=== PATIENT | female | born 1990 ===

== ENCOUNTER 2019-05-23 09:19 | Inpatient (IN) | payer MEDICAID, OTHER ==
--- NOTE | 2019-05-23 10:39 | HP ---
General Information - Reason for Visit IUP at 40-6/7 weeks in labor - General Information Maternal Age: 28 Grav: 1 Para: 0 SAB: 0 IEA: 0 Estimated Due Date: 05/17/19 Determined By: LMP Gestational Age in Weeks/Days: 40-6/7 Maternal Blood Type and Rh: A Positive - Results this Serology/RPR Result: Non-Reactive Rubella Result: Immune HBsAg Result: Negative HIV Result: Negative GBS Culture Result: Negative Past Medical History Delivery History: See Records Delivery History Comment: Primip Pertinent Past Medical History: See Records Past Medical History Comment: High risk social circumstances. Established care in [place]. Relocated to [place] with [facility] and then moved to [place] following a break up with [facility]. Here with a sponsor family but no extended personal friends or family in this area. Pertinent Past Surgical History: None Pertinent Family History: See Records Family History Comment: Brother recently murdered back in [place]. Pt exposed to gruesome pictures of his murder on the news since moving to [place]. Remaining family healthy - Antepartal Records Antepartal Records: Reviewed, Complicated by: - Proteinuria, High risk social circumstances, Per personal choice declines blood products but consents to IV in labor Review of Systems Constitutional: Uncomfortable - with UCs CV Complaint: No Respiratory: Shortness of Breath: No Gastrointestinal: No Nausea/Vomiting, Normal Bowel Movement Genitourinary: No Dysuria, No Bleeding, No Leaking Fluid Musculoskeletal: Contractions Neurological: No Headache, No Visual Changes Movement: Normal Exam BP 133/79 HR 65 RR 17 T 98 Lab Values - Entire Visit: Laboratory Tests 05/23/19 09:44 Vag Amniotic Fld Detect Negative - Measurements Height: 4 ft 10 in Weight: 138 lb Weight in lbs: 138.818390 Body Mass Index (BMI): 28.8 Pre- Weight: 108 lb - Exam Breast: Breast Exam Deferred CVA: No CVA Tenderness Extremities: No Edema Heart: Normal Rhythm/Heart Sounds HEENT: No Significant Findings Lungs: Clear Bilaterally Rectal: Rectal Exam Deferred Reflexes: DTR 2+ Thyroid: No Thyromegaly - Abdominal Exam Abdomen Exam: Non-Tender, Fundal Height Consistent with Dates - Ultrasound/Biophysical Profile Ultrasound Status: Not Done Targeted Exam Findings See L&D Outpatient Visit Provider Note for Findings: N/A Cervical Exam: 6cm Effacement: 90% Station: -1 - per RN exam on arrival Presenting Part: Vertex Membrane Status: Bulging Amniotic Fluid Evaluation: ROM Plus Pending Sterile Speculum Exam: Not done Bleeding/Discharge: None EFM Findings - External Monitor Findings Baseline Heart Rate: 140 External Monitor Findings: Accelerations Present, No Pattern of Variable or Late Decelerations, Variability Moderate, Baseline Stable External Monitor Findings Comment: No evidence of metabolic acidemia Contractions: Regular Contraction Frequency: q 5 min Assessment/Plan - Assessment IUP at 40-6/7 in labor No evidence of metabolic acidemia Proteinuria without hypertension Declines blood products - Obstetrical Risk Factors Obstetrical Risk Factors: Proteinuria, Psychosocial Issues - Plan Plan: Admit - Anticipate Vaginal Delivery Plan Comment: Admit. Given history of proteinuria plan labs: CBC, P33, uric acid, u/a. Counseled with aid of [place] carpet inspector re: need for IV placement in labor given refusal of all blood products. Aware of bleeding risks associated with delivery and <1% chance that pt would need blood products pt verbalizes understanding and still declines. Dr. Whyte aware of pt presence and condition. Anticipate - Date/Time of Admission Date of Admission: 05/23/19 Time of Admission: 10:01
[2019-05-23 11:07] LABS: ABS Basophils 0.1 10^3/ul (0-0.2); ABS Lymphocytes 2.4 10^3/ul (1.0-4.8); ABS Monocytes 1.2 10^3/ul (0-0.8); ABS Neutrophils 8.6 10^3/ul (1.5-7.7); Eosinophil % 0.2 %; Hematocrit 40 % (35-47); Hemoglobin 13.2 g/dL (12.0-16.0); Lymphocyte % 19.6 %; Mean Corpuscular HGB Conc 33 g/dL (31-36); Mean Corpuscular Hemoglobin 29 pg (27-31); Mean Corpuscular Volume 86 fL (80-97); Mean Platelet Volume 10.9 fL (7.4-10.4); Nucleated Red Blood Cells % 0.1; Platelet Count 156 10^3/uL (150-450); Red Blood Count 4.63 10^6 /uL (3.70-4.87); Red Cell Distribution Width 15 % (10-15); White Blood Count 12.3 10^3/uL (3.5-10.8)
[2019-05-23 11:10] LABS: Urine Appearance Cloudy; Urine Bacteria Absent (Absent); Urine Bilirubin Negative (Negative); Urine Blood 1+ (Negative); Urine Color Yellow; Urine Glucose Negative (Negative); Urine Ketones Negative (Negative); Urine Nitrite Negative (Negative); Urine Protein 3+(>=500 mg/dL) (Negative); Urine Red Blood Cell Trace(0-2/hpf) (Absent); Urine Specific Gravity 1.011 (1.010-1.030); Urine Squamous Epithelial Cell Present (Absent); Urine Urobilinogen Negative (Negative); Urine White Blood Cell 2+(11-20/hpf) (Absent)
[2019-05-23 11:22] LABS: Albumin 3.1 g/dL (3.2-5.2); Albumin/Globulin Ratio 1.1 (1-3); BUN/Creatinine Ratio 22.2 (8-20); Calcium 8.5 mg/dL (8.6-10.3); EGFR African American 160.4 (>60); EGFR Non-African American 132.6 (>60); Globulin 2.8 g/dL (2-4); Potassium 3.9 mmol/L (3.5-5.0); Total Bilirubin 0.3 mg/dL (0.2-1.0); Total Protein 5.9 g/dL (6.4-8.9); Uric Acid 6.8 mg/dL (2.3-6.6)
[2019-05-23 11:28] LABS: Urine Benzodiazepine Screen None Detected (None Detect); Urine Opiates Screen None Detected (None Detect)
--- NOTE | 2019-05-23 11:53 | PN ---
Progress Note - Progress Note Date of Service: 05/23/19 Note: S: Pt reports UCs stronger and feeling some intermittent rectal pressure like she needs to have a BM. O: VSS, afebrile FHT 125bpm by intermittent doptones. No decels UCs q 5 min, moderate to palpation VE by CNM 4cm/80%/vtx -2, BBOW BP labs WNL. Proteinuria still seen A: IUP at 40-6/7 in early active labor No evidence of metabolic acidemia Proteinura without hypertension P: Support given. Pt moving around room, changing positions frequently. Reinforced. Also encouraged PO hydration. Will continue to monitor closely
--- NOTE | 2019-05-23 14:13 | PN ---
Progress Note - Progress Note Date of Service: 05/23/19 Note: S: Pt was able to take a nap and is now in the tub with good relief from discomfort of UCs O: VSS, afebrile FHT 135bpm. Moderate variability. + Accels. No decels UCs q 5 min VE deferred A: IUP at 40-6/7 in early active labor No evidence of metabolic acidemia P: Continue expectant management and psychoprophylaxis per pt preference at this time
--- NOTE | 2019-05-23 18:08 | PN ---
Progress Note - Progress Note Date of Service: 05/23/19 Note: S: Pt requesting VE. Reports UCs have spaced out to q 10 min O: VSS, afebrile FHT 130bpm. Moderate variability. No decels by intermittent doptones UCs q 6-10 min, moderate - firm VE: 4-5cm/80%/vtx -1, BBOW A: IUP at 40-6/7 in early active labor No evidence of metabolic acidemia P: Discussed ongoing expectant management and reassurance given. Reviewed labor augmentation and discussed AROM vs. IV pitocin. Pt prefers to avoid for now. Will continue to monitor.
--- NOTE | 2019-05-23 21:26 | PN ---
Progress Note - Progress Note Date of Service: 05/23/19 Note: S: Pt reports UCs closer together but shorter duration. Feeling more pressure in lower abdomen and low back O: VSS, afebrile FHT 135bpm. Moderate variability. +Accels. No decels UCs q 5-8 min VE unchanged A: IUP at 40-6/7 weeks in early active labor No evidence of metabolic acidemia P: Discussed management of early labor, expectant management vs. therapeutic rest vs. augmentation. At this time pt prefers ongoing expectant management. Will continue to monitor. Enc rest if able as well as PO hydration
--- NOTE | 2019-05-23 23:08 | PN ---
Progress Note - Progress Note Date of Service: 05/23/19 Note: S: Pt breathing through UCs but resting in between. Comfortable with ongoing expectant management O: VSS, afebrile FHT 135bpm. Moderate variability. +Accels. No decels UCs q 7-9 min VE deferred A: IUP at 40-6/7 in latent labor No evidence of metabolic acidemia P: Will continue to monitor. Enc rest if able.
--- NOTE | 2019-05-24 02:32 | PN ---
Progress Note - Progress Note Date of Service: 05/24/19 Note: S: Paged by RN to bedside for evaluation of possible SROM at 0200. Pt was ambulating in room, experienced a contraction and had a modest amount of yellow tinged fluid come out. RN suspects meconium. Pt c/o mid to low back ache that persists even after UC resolves. O: BP 133/68 HR 53 T 98.1 RR 18 FHT 140bpm. Moderate variability. +Accels. No decels UCs q 4-6 min VE 6cm/100%/vtx -1, BBOW palpated and no fluid present on glove, negative valsalva A: IUP at 41 weeks in early active labor No evidence of metabolic acidemia ?SROM P: Will continue to monitor. Pt to wear a pad. Reassurance given to pt re: aches and pains associated with labor
[2019-05-24] MEDS ORDERED: fentaNYL* 50 MCG/ML 2 ML VIAL (100 MCG VIAL) IV SLOW PU ONE ×2 (05:10→06:21)
--- NOTE | 2019-05-24 05:14 | PN ---
Progress Note - Progress Note Date of Service: 05/24/19 Note: S: Paged by RN to bedside to evaluate pt and discuss pain pt is experiencing. Pt requesting a short nap, something to help her "just for a little while". Movement is important to her. While at bedside pt reports SROM. On evaluation mec stained fluid noted coming from vagina O: VSS, afebrile FHT 140bpm. No decels per intermittent doptones. FHT being placed secondary to SROM UCs q 2-3 min VE: 6cm/100%/vtx 0 station, Membranes no longer felt A: IUP at 41 weeks in labor No evidence of metabolic acidemia Meconium stained fluid P: Bedside support and reassurance given. Pt counseled for IV pain relief. Pt desires. Will start with 25mcg IV Fentanyl
[2019-05-24] MEDS ORDERED: OBEPIDURAL* 0 ML EPIDURAL ONE (07:19)
[2019-05-24] MEDS ORDERED: Lidocaine 1.5% EPI 1:200,000* 30 ML SDV ONE (07:29)
[2019-05-24] MEDS ORDERED: OBEPIDURAL* 250 ML EPIDURAL ONE (07:30)
--- NOTE | 2019-05-24 07:50 | PN ---
Progress Note - Progress Note Date of Service: 05/24/19 Note: S: Pt received modest relief from IV Fentanyl. Feeling exhausted. Would like to discuss epidural placement O: VSS, afebrile FHT 140bpm. No decels by intermittent doptones UCs q 2-4 min VE deferred A: IUP at 41 weeks in labor No evidence of metabolic acidemia P: Anesthesia paged for consult. Report to Rianna Hernandez CNM who will be assuming care at 0800
[2019-05-24] MEDS ORDERED: Lactated Ringers 1000 ML Bag* 1,000 ML IV ONE (08:42)
[2019-05-24] MEDS ORDERED: Phenylephrine 40 MCG/ML SYRINGE IV PUSH PRN ×2 (08:42)
[2019-05-24] MEDS ORDERED: Sodium Citrate/Citric Acid* 15 ML UDC PO PRN (08:42)
--- NOTE | 2019-05-24 08:58 | PN ---
Progress Note - Progress Note Date of Service: 05/24/19 SOAP: Subjective: Pt comfortable s/p epidural placement. Very tired, falling asleep. Objective: FHR: Baseline 140, moderate variability, + accels, no decels UCs: Q 2-3 minutes, 60-80 seconds BP: 138/80 Temp: 98.6 Meconium stained fluid Assessment: Pt in active labor, comfortable with epidural. FHR Category I, no evidence of acidemia or chorioamnionitis. BPs mildly elevated. Pt with preexisting proteinuria, preeclampsia vs elevated BPs due to pain. Plan: Pt very fatigued, prefers to defer cervical exam at this time. Will recheck with pt report of pressure or increased discomfort, or in a couple hours. Anticipate .
[2019-05-24] MEDS ORDERED: Lactated Ringers 1000 ML Bag* 1,000 ML IV SCH ×2 (09:00→14:00)
[2019-05-24] MEDS ORDERED: OBEPIDURAL* 250 ML EPIDURAL SCH (09:00)
--- NOTE | 2019-05-24 10:32 | PN ---
Progress Note - Progress Note Date of Service: 05/24/19 SOAP: Subjective: Pt increasingly uncomfortable. Reports pressure, very uncomfortable with the urinary catheter, requests it be removed. Also having difficulty tolerating EFM straps. Pain more significant on left than right. Objective: Cervix: 6-7 cm/ 90%/ 0 station/ vtx Ctx: about every 2-3 minutes, monitor adjusted FHR: Baseline 135/ moderate variability/ + accels/ intermittent variable and early decels Assessment: Pt without significant cervical change for many hours. Not comfortable with epidural. FHR with some intermittent variable decels, resolved with position changes. Pt with difficulty coping. Plan: Dr. Salmeron called to bolus/ reposition pt epidural. Salvador catheter removed per pt request. Pt attempting to have BM on bedpan. Once pt more comfortable will consider IUPC placement. Dr. Ryder updated to pt status.
[2019-05-24 11:12] LABS: ABS Lymphocytes 1.4 10^3/ul (1.0-4.8); ABS Monocytes 1.1 10^3/ul (0-0.8); ABS Neutrophils 12.8 10^3/ul (1.5-7.7); Hematocrit 41 % (35-47); Hemoglobin 13.4 g/dL (12.0-16.0); Lymphocyte % 9.4 %; Mean Corpuscular HGB Conc 33 g/dL (31-36); Mean Corpuscular Hemoglobin 28 pg (27-31); Mean Corpuscular Volume 85 fL (80-97); Mean Platelet Volume 10.6 fL (7.4-10.4); Platelet Count 148 10^3/uL (150-450); Red Blood Count 4.74 10^6 /uL (3.70-4.87); Red Cell Distribution Width 15 % (10-15); White Blood Count 15.3 10^3/uL (3.5-10.8)
--- NOTE | 2019-05-24 11:26 | PN ---
Progress Note - Progress Note Date of Service: 05/24/19 Note: S: Pt remains very uncomfortable despite attempts by Dr. Salmeron to bolus the epidural. O: FHR Baseline 135, moderate variability, + accels, no decels Cervical exam unchanged UCs Q 2-3 minutes, strong to palpation BP 135/94 Meconium stained fluid A: Inadequate pain relief with epidural. Apparent arrest of dilation. FHR Category I. P: Discussed options with pt, including for arrest of dilation. Alternate option would be to continue to labor, consider IUPC/ Pitocin augmentation if ctx inadequate. Pt would like to discuss with her support people. CBC drawn to recheck platelet levels. Dr. Ryder aware of pt status.
[2019-05-24] MEDS ORDERED: ceFOXitin 2 GM IVPREMIX* 2 GM/50 ML BAG ONE (12:06)
[2019-05-24] MEDS ORDERED: ceFOXitin 2 GM IVPREMIX* 2 GM/50 ML BAG IVPB ONE (12:06)
[2019-05-24] MEDS ORDERED: Sodium Citrate/Citric Acid* 15 ML UDC ONE (12:06)
--- NOTE | 2019-05-24 12:06 | PN ---
Progress Note - Progress Note Date of Service: 05/24/19 Note: Pt presented in labor last night at 41 weeks. She has labored effectively with regular, strong ctx, but she has had no cervical change from 6cm for at least 7-8 hours now. Discussed , and pt agrees to proceed. Pt is Danish speaking but understands Vietnamese quite well. Declines an asthma educator. We discussed delivery at length. We reviewed the risks including hemorrhage, transfusion, infection, organ injury , anesthesia complications, and even . All questions were discussed and consent signed.
[2019-05-24] MEDS ORDERED: DiMENhydriNATE IV* 50 MG/ML VIAL ONE (12:10)
[2019-05-24] MEDS ORDERED: Ketorolac INJ* 30 MG/ML 1 ML VIAL ONE (12:10)
[2019-05-24] MEDS ORDERED: Lidocaine 2% PF* 10 ML AMP ONE (12:10)
[2019-05-24] MEDS ORDERED: Ondansetron INJ* 2 MG/ML VIAL ONE (12:10)
[2019-05-24] MEDS ORDERED: OXYTOCIN* 10 UNITS/ML 1 ML VIAL ONE (12:10)
[2019-05-24] MEDS ORDERED: Acetaminophen IV 1GM/100ML * 1,000 MG/100 ML VIAL IVPB ONE (12:13)
[2019-05-24] MEDS ORDERED: DiMENhydriNATE IV* 50 MG/ML VIAL IV PUSH PRN (12:13)
[2019-05-24] MEDS ORDERED: HYDROmorphone INJ1* 1 MG/ML SYRINGE IV PRN (12:13)
[2019-05-24] MEDS ORDERED: Naloxone* 0.4 MG/ML 1 ML VIAL IV PRN ×2 (12:13→13:42)
[2019-05-24] MEDS ORDERED: Morphine PF AMP (0.5MG/ML)* 5 MG/10 ML AMP ONE (12:15)
[2019-05-24] MEDS ORDERED: Propofol* 10 MG/ML 20 ML BTL ONE (13:32)
[2019-05-24] MEDS ORDERED: Ondansetron INJ* 2 MG/ML VIAL IV PRN (13:42)
[2019-05-24] MEDS ORDERED: Nalbuphine* 10 MG/ML 1 ML VIAL IV PRN (13:42)
[2019-05-24] MEDS ORDERED: oxyCODONE/Acetamin 5/325 MG* TAB PO PRN (13:42)
[2019-05-24] MEDS ORDERED: Witch Hazel PAD* JAR TOPICAL PRN (13:58)
[2019-05-24] MEDS ORDERED: Acetaminophen TAB* 325 MG PO PRN (13:58)
[2019-05-24] MEDS ORDERED: Ketorolac INJ* 30 MG/ML 1 ML VIAL IV SCH (14:00)
[2019-05-24] MEDS: Simethicone TAB* 80 MG TAB.CHEW PO SCH ×2 (18:32→22:21)
[2019-05-24] MEDS: Docusate CAP* 100 MG PO SCH ×2 (19:09→23:10)
--- NOTE | 2019-05-24 19:59 | OP ---
DATE OF OPERATION: 05/24/19 - ROOM #102 DATE OF : 86 SURGEON: Dutch Ryder MD. FOREST WORKER: Rianna Hernandez CNM. ANESTHESIOLOGIST: Dr. Salmeron. ANESTHESIA: Spinal. PRE-OP DIAGNOSIS: 41 weeks gestation with arrest of dilation. POST-OP DIAGNOSIS: 41 weeks gestation with arrest of dilation. OPERATIVE PROCEDURE: Primary low transverse section. ESTIMATED BLOOD LOSS: 600 cc. URINE OUTPUT: 400 cc. IV FLUIDS: 1500 cc lactated Ringer's. MATERIALS TO LAB: Cord blood. INDICATIONS: This patient is a 28-year-old 1, para 0, who presented in labor overnight. The patient had steady progress to about 6 cm dilation, but then did not have any further dilation for the last several hours despite frequent painful contractions. The patient received an epidural during labor; however, this stopped giving adequate pain relief. Considering the arrest of dilation, the patient was counseled for a section. She agreed and consent was signed. FINDINGS: Normal-appearing uterus, fallopian tubes, and ovaries. Delivery was productive of a male infant weighing 6 pounds 4 ounces with Apgars of 9 and 9. Time of delivery was 1304. COMPLICATIONS: None. DESCRIPTION OF PROCEDURE: The risks, benefits, and alternatives were described to the patient and informed consent was obtained. The patient was taken to the operating room with IV running where spinal anesthesia was induced and found to be adequate. The patient was prepped and draped in the normal sterile fashion in the dorsal supine position with leftward tilt. A Pfannenstiel skin incision was made with a scalpel and this was carried down to the underlying fascia sharply. The fascia was then scored in the midline with the scalpel. The incision was extended using Goff scissors. The rectus muscles were dissected off the rectus fascia using blunt and sharp dissection. The rectus muscles were in the midline bluntly. The peritoneum was also entered bluntly. A bladder blade was placed. A bladder flap was created sharply using Metzenbaum scissors. A low transverse uterine incision was made with the scalpel. This was carried down to the amniotic cavity which was productive of clear fluid. The incision was extended with blunt traction. The head was elevated to the level of the incision without much difficulty and delivered through the incision. With fundal pressure, the shoulders and body delivered without difficulty. The had a good tone and cried shortly after delivery. The cord was doubly clamped and cut. The was then handed to the awaiting edge sander. Cord blood was collected. The placenta then delivered with manual extraction. The uterus was then exteriorized and cleared of all clots and debris. Uterine incision was reapproximated using 0 Vicryl in a running-locked fashion. A second layer of imbricating sutures of 0 Vicryl was also placed with good hemostasis. The posterior cul-de-sac was irrigated with saline. The uterus was then returned to the abdomen, and the incision was reinspected and noted to be hemostatic. The peritoneum was closed with 3-0 Vicryl in a running fashion. The fascia was closed with 0 Vicryl in a running fashion. The skin was then closed with 4-0 Monocryl in a subcuticular stitch. Mastisol and Steri-Strips were placed over the incision which was then covered with a sterile bandage. The patient tolerated the procedure well. Sponge, lap, and needle counts were correct x2. [id number]/[facility] #: [id number] [facility] CENTERThong
[2019-05-24] MEDS: Ketorolac INJ* 30 MG/ML 1 ML VIAL IV SCH (20:00)
[2019-05-25] MEDS: Ketorolac INJ* 30 MG/ML 1 ML VIAL IV SCH ×2 (01:00→11:06)
[2019-05-25] MEDS ORDERED: oxyCODONE/Acetamin 5/325 MG* TAB PO PRN (04:30)
[2019-05-25 06:17] LABS: ABS Basophils 0.1 10^3/ul (0-0.2); ABS Lymphocytes 2.5 10^3/ul (1.0-4.8); ABS Monocytes 1.1 10^3/ul (0-0.8); ABS Neutrophils 11.1 10^3/ul (1.5-7.7); Eosinophil % 0.1 %; Hematocrit 30 % (35-47); Hemoglobin 10.4 g/dL (12.0-16.0); Lymphocyte % 16.9 %; Mean Corpuscular HGB Conc 35 g/dL (31-36); Mean Corpuscular Hemoglobin 30 pg (27-31); Mean Corpuscular Volume 86 fL (80-97); Mean Platelet Volume 10.3 fL (7.4-10.4); Platelet Count 124 10^3/uL (150-450); Red Blood Count 3.47 10^6 /uL (3.70-4.87); Red Cell Distribution Width 15 % (10-15); White Blood Count 14.8 10^3/uL (3.5-10.8)
[2019-05-25] MEDS: Docusate CAP* 100 MG PO SCH ×3 (08:53→21:10)
[2019-05-25] MEDS: Simethicone TAB* 80 MG TAB.CHEW PO SCH ×4 (08:53→21:10)
[2019-05-25] MEDS: Ibuprofen TAB* 600 MG PO PRN ×3 (08:53→21:09)
[2019-05-25] MEDS ORDERED: Ferrous Gluconate TAB* 324 MG TAB PO SCH (09:00)
[2019-05-26] MEDS: Ibuprofen TAB* 600 MG PO PRN ×3 (08:22→21:45)
[2019-05-26] MEDS: Docusate CAP* 100 MG PO SCH ×3 (08:23→21:45)
[2019-05-26] MEDS: Simethicone TAB* 80 MG TAB.CHEW PO SCH ×4 (08:23→21:45)
[2019-05-27] MEDS: oxyCODONE/Acetamin 5/325 MG* TAB PO PRN ×3 (01:17→14:43)
[2019-05-27] MEDS: Ibuprofen TAB* 600 MG PO PRN ×2 (04:52→09:36)
[2019-05-27] MEDS: Docusate CAP* 100 MG PO SCH ×2 (08:01→14:12)
[2019-05-27] MEDS: Simethicone TAB* 80 MG TAB.CHEW PO SCH ×2 (08:01→12:27)
[2019-05-27 09:30] VITALS: BP 127/82
[2019-05-27] MEDS ORDERED: Tetan/Diph/Pertus SYR(Tdap)* 0.5 ML SYR(BOOSTRIX) use SYR IM ONE (15:00)
== END 2019-05-27 15:02 | disposition home or self-care (01) | DRG 540 ==
LOC: MCHOBOUT 09:19 → MCHOB 10:01
PROVIDERS: ADMIT Midwife; ATTEND Obstetrics & Gynecology
PROC: 4A1HXCZ Monitoring of Products of Conception, Cardiac Rate, External Approach (ICD-10-PCS; 2019-05-24)
PROC: 10D00Z1 Extraction of Products of Conception, Low, Open Approach (ICD-10-PCS; principal; 2019-05-24 12:28)
DX: O48.0 Post-term pregnancy (principal); O12.14 Gestational proteinuria, complicating childbirth; Z3A.40 40 weeks gestation of pregnancy; O77.0 Labor and delivery complicated by meconium in amniotic fluid; O62.1 Secondary uterine inertia; Z37.0 Single live birth; O76 Abnormality in fetal heart rate and rhythm complicating labor and delivery
CPT/HCPCS: 36415; 80053; 80307; 81003; 81015; 84112; 84550; 85025; 86850; 86900; 86901; 87086; A9270-GY; J0694; J1240; J1885; J2001; J2405; J2590; J2704; J3010